=== PATIENT | female | born 2000 | race African-American/Black ===

== ENCOUNTER 2021-03-17 14:51 | Emergency (ER) | payer OTHER ==
[~2021-03-17] VITALS: Ht 157.5 cm; Wt 98.9 kg
[2021-03-17 14:57] VITALS: BP 132/76
--- NOTE | 2021-03-17 15:03 | NUR ---
PT W/C ASSISTED TO BED 2.
--- NOTE | 2021-03-17 15:07 | NUR ---
20/F presents to ED with c/o right knee pain x2 hours. Patient states she was at work and when she was walking she felt her knee "pop out of place." Patient states she had an old injury to the same knee years ago and ever since has had a chronic problem with her knee. Patient denies taking anything for pain, knee is tender to touch, patient unable to bend knee, unable to ambulate on right leg.
--- NOTE | 2021-03-17 15:10 | NUR ---
Patient being evaluated by MADISON Perez at bedside.
[2021-03-17] MEDS ORDERED: KETOROLAC 30 MG/ML VIAL IM ONE (15:15)
[2021-03-17] MEDS ORDERED: IBUP-2213 PO (15:46)
--- NOTE | 2021-03-17 15:46 | NUR ---
PT PLACED IN RIGHT KNEE IMMOBILIZOR AND GIVEN CRUTCHES. PT GIVEN ONE ON ONE INSTRTUCTIONS ON HOW TO USE CRUTCHES. PT SHOWED PROPER DEMENSTRATION ON PROPER USE OF CRUTCHES AND STATES THEY FELT COMFORTABLE WHILE USING CRUTCHES. CRUTCHES ADJUSTED TO PT PROPER SIZE AND HEIGHT. PT HAD NO FURTHER QUESTIONS. PA AND PA NOTIFIED.
[2021-03-17 16:08] VITALS: BP 132/76
== END 2021-03-17 16:07 | disposition home or self-care (01) ==
LOC: MED 14:51
DX: M25.561 Pain in right knee (principal); X58.XXXA Exposure to other specified factors, initial encounter; Y93.89 Activity, other specified; Y92.89 Other specified places as the place of occurrence of the external cause; Y99.8 Other external cause status
CPT/HCPCS: 29505; 73562; 96372; 99283; J1885